=== PATIENT | male | born 1950 | race Caucasian/White ===

== ENCOUNTER 2016-09-18 09:46 | Emergency (ER) | payer OTHER ==
[2016-09-18] MEDS ORDERED: RX INFO: IV CONTRAST WAS GIVEN 1 EACH MISC MISCELLANE PRN (10:10)
--- NOTE | 2016-09-18 10:21 | ED ---
General Adult HPI - General Chief complaint: ENT Stated complaint: Facial swelling Time Seen by Provider: 09/18/16 10:03 Source: patient Mode of arrival: ambulatory Limitations: no limitations - History of Present Illness Initial comments: 65-year-old male with past medical history of hypertension, hyperlipidemia, and PPH presents with a 2 day history of right-sided facial swelling. Patient had a routine dental cleaning proximally 5 days ago. He had no symptoms after the cleaning and abruptly developed right-sided facial swelling yesterday. Patient denies fever but states he has felt hot and cold. He does not have a history of diabetes. Denies any tooth pain. Denies sore throat or difficulty swallowing. Patient denies trouble opening his mouth. Patient states he also feels a fullness in his right ear and swelling progresses down his neck. - Related Data Home Medications Medication Instructions Recorded Confirmed Fenofibrate 134 mg PO DAILY 09/18/16 09/18/16 Fluticasone Nasal [place] [Flonase 2 spr EA NOSTRIL DAILY PRN 09/18/16 09/18/16 Nasal [place]] Krill Oil 500 mg PO DAILY 09/18/16 09/18/16 Losartan/Hydrochlorothiazide 1 tab PO DAILY 09/18/16 09/18/16 [Hyzaar 50-12.5 Tablet] Multivitamins, Thera [Multivitamin 1 tab PO DAILY 09/18/16 09/18/16 (formulary)] Omeprazole [PriLOSEC] 40 mg PO DAILY 09/18/16 09/18/16 Tamsulosin HCl [Flomax] 0.4 mg PO DAILY 09/18/16 09/18/16 Previous Rx's Medication Instructions Recorded Amoxicillin/Potassium Clav 1 tab PO Q12HR #20 tab 09/18/16 [Augmentin 875-125 Tablet] Allergies Allergy/AdvReac Type Severity Reaction Status Date / Time No Known Allergies Allergy Verified 09/18/16 13:06 Review of Systems ROS Statement: Those systems with pertinent positive or pertinent negative responses have been documented in the HPI. ROS Other: All systems not noted in ROS Statement are negative. Constitutional: Reports: fever, chills (Subjective) ENT: Reports: other (Ear fullness) Respiratory: Denies: cough, dyspnea Cardiovascular: Denies: chest pain Endocrine: Denies: fatigue Gastrointestinal: Denies: abdominal pain, nausea, vomiting Past Medical History Past Medical History: Hyperlipidemia, Hypertension Additional Past Medical History / Comment(s): prostate History of Any Multi-Drug Resistant Organisms: None Reported Past Surgical History: Cholecystectomy, Orthopedic Surgery Past Psychological History: No Psychological Hx Reported Smoking Status: Never smoker Past Alcohol Use History: None Reported Past Drug Use History: None Reported General Exam Limitations: no limitations General appearance: alert, in no apparent distress, other (Nontoxic) Head exam: Present: atraumatic, normocephalic Eye exam: Present: normal appearance, PERRL. Absent: scleral icterus ENT exam: Present: normal oropharynx, mucous membranes moist, normal external ear exam, other (Swelling of the right face which begins in the preauricular area and extends down into the anterior cervical region. Warm. No tenderness to percussion on any teeth.) Neck exam: Present: tenderness, other (No trismus) Respiratory exam: Absent: normal lung sounds bilaterally Cardiovascular Exam: Absent: regular rate, normal rhythm GI/Abdominal exam: Absent: soft, tenderness Extremities exam: Present: normal inspection Neurological exam: Present: alert, oriented X3 Skin exam: Present: warm, dry Course Vital Signs 09/18/16 09:48 Temperature 98.3 F Pulse Rate 72 Respiratory 20 Rate Blood Pressure 139/91 O2 Sat by Pulse 96 Oximetry - Reevaluation(s) Reevaluation #1: 09/18/16 15:06 Patient is reevaluated at 1315 100. Pain is improved with Toradol injection. CT results were discussed with patient. Medical Decision Making - Medical Decision Making 65-year-old male presenting with right-sided facial swelling over the past 24 hours. Laboratory studies are obtained and significant only for mild elevation in white blood cell count of 12.7. CT of the face and neck is obtained with contrast to evaluate for suppurative parotitis. There is evidence only of parotid gland swelling. CT results do not show an infectious process, no fat stranding. Patient will be given antibiotics and is encouraged to use lemon drops for increased salivary gland drainage. Patient will follow up with his primary care physician in the next several days. Patient is instructed to return to the emergency department with fever, worsening swelling or pain. Diagnosis: Parotitis Disposition: Home with outpatient follow-up. - Lab Data Result diagrams: 09/18/16 10:20 09/18/16 10:20 Lab Results 09/18/16 09/18/16 Range/Units 10:20 10:20 WBC 12.7 H (3.8-10.6) k/uL RBC 5.62 (4.30-5.90) m/uL Hgb 18.4 H (13.0-17.5) gm/dL Hct 48.7 (39.0-53.0) % MCV 86.7 (80.0-100.0) fL MCH 32.7 (25.0-35.0) pg MCHC 37.7 H (31.0-37.0) g/dL RDW 13.6 (11.5-15.5) % Plt Count 200 (150-450) k/uL Neutrophils % 78 % Lymphocytes % 13 % Monocytes % 6 % Eosinophils % 2 % Basophils % 0 % Neutrophils # 9.9 H (1.3-7.7) k/uL Lymphocytes # 1.6 (1.0-4.8) k/uL Monocytes # 0.7 (0-1.0) k/uL Eosinophils # 0.2 (0-0.7) k/uL Basophils # 0.1 (0-0.2) k/uL Hyperchromasia Slight Sodium 140 (137-145) mmol/L Potassium 4.2 (3.5-5.1) mmol/L Chloride 105 (98-107) mmol/L Carbon Dioxide 22 (22-30) mmol/L Anion Gap 13 mmol/L BUN 19 (9-20) mg/dL Creatinine 0.90 (0.66-1.25) mg/dL Est GFR (MDRD) Af Amer >60 (>60 ml/min/1.73 sqM) Est GFR (MDRD) Non-Af >60 (>60 ml/min/1.73 sqM) Glucose 98 (74-99) mg/dL Calcium 9.5 (8.4-10.2) mg/dL Disposition Clinical Impression: Parotitis Disposition: HOME SELF-CARE Condition: Good Additional Instructions: Patient will return with fever or worsening pain, or difficulty swallowing. Patient is instructed to suck on lemon drops every few hours. Prescriptions: Amoxicillin/Potassium Clav [Augmentin 875-125 Tablet] 1 tab PO Q12HR #20 tab Referrals: Vince Davila MD [Primary Care Provider] - 1-2 days
[2016-09-18 10:45] LABS: Basophils # (A) 0.1 k/uL (0-0.2); Basophils % (A) 0 %; CH 32.4; CHCM 37.6; Eosinophils # (A) 0.2 k/uL (0-0.7); Eosinophils % (A) 2 %; HCT 48.7 % (39.0-53.0); HDW 2.86; HGB 18.4 gm/dL (13.0-17.5); Hyperchromasia Slight; Luc # (Auto) 0.19; Luc % (Auto) 2; Lymphocytes # (A) 1.6 k/uL (1.0-4.8); Lymphocytes % (A) 13 %; MCH 32.7 pg (25.0-35.0); MCHC 37.7 g/dL (31.0-37.0); MCV 86.7 fL (80.0-100.0); Mean Platelet Volume 7.7; Monocytes # (A) 0.7 k/uL (0-1.0); Monocytes % (A) 6 %; Neutrophils # (A) 9.9 k/uL (1.3-7.7); Neutrophils % (A) 78 %; RBC 5.62 m/uL (4.30-5.90); RDW 13.6 % (11.5-15.5); WBC 12.7 k/uL (3.8-10.6); WBC (Perox) 12.16
[2016-09-18 10:55] LABS: Anion Gap 13 mmol/L; Blood Urea Nitrogen 19 mg/dL (9-20); Calcium 9.5 mg/dL (8.4-10.2); Carbon Dioxide 22 mmol/L (22-30); Chloride 105 mmol/L (98-107); Glucose 98 mg/dL (74-99); Non-African American GFR(MDRD) >60 (>60 ml/min/1.73 sqM); Potassium 4.2 mmol/L (3.5-5.1); Sodium 140 mmol/L (137-145)
[2016-09-18] MEDS ORDERED: KETOROLAC 30 MG/ML 1 ML VIAL IVP STA (13:16)
--- NOTE | 2016-09-18 14:57 | CT ---
EXAMINATION TYPE: CT facial bones w con DATE OF EXAM: 09/18/2016 COMPARISON: NONE HISTORY: Facial swelling and pain CT DLP: 586 mGycm Automated exposure control for dose reduction was used. CONTRAST: CT scan of the facial bones is performed with IV Contrast, patient injected with 100 ml mL of Omnipaq ue 300. TECHNIQUE: CT scan of the sinuses is performed without contrast, axial images are obtained, coronal r eformatted images are also reviewed. FINDINGS: The right parotid gland is prominent. No underlying abnormality is identified. This corresp onds to a BB on the right cheek. No underlying abnormality is evident at the second BB on the right c heek. Orbits appear symmetrical. Globes are symmetrical. Maxillary sinuses ethmoid air cells frontal sinuse s and sphenoid sinuses are clear. Mastoid air cells are clear. Incidental note is made of some low de nsity within the left subcutaneous cheek the initial image. This extends inferiorly out of the field- of-view. Right septal deviation is present IMPRESSION: 1. Prominent right parotid gland. 2. 1.7 cm partially visualized soft tissue subcutaneous mass over the left cheek. 3. An abnormality at the right cheek marked by BB is not identified.
--- NOTE | 2016-09-18 15:00 | CT ---
EXAMINATION TYPE: CT soft tissue neck w con DATE OF EXAM: 09/18/2016 COMPARISON: NONE HISTORY: Facial swelling and pain CT DLP: 700 mGycm CONTRAST: Patient injected with 100 ml mL of Omnipaque 300. TECHNIQUE: Axial images at 3 mm thick sections. Reconstructed images in the coronal plane and sagitt al plane are reviewed. FINDINGS: Limited CT sections are obtained the lung apices. The lung apices appear clear. CT neck: The torus tubarius and fossa of Rosenmuller are normal. [employer] Worker spaces are normal. Para nasal sinuses and mastoid air cells are clear. There is a nonspecific subcutaneous left low density s tructure measuring 1.6 cm just anterior to the left lateral dedicated regional driver muscles. Lymph node could be c onsidered. This area corresponds to the soft tissue abnormality described on the CT facial bone study . The right parotid gland is prominent. The second more anterior cheek BB on the right does not corresp ond to an abnormality within the [id number]. Submandibular glands, are normal. Parapharyngeal spaces are normal. No suspicious adenopathy is elver dent. Vocal cord level appear symmetrical. Subglottic airway is unremarkable. The hypopharynx appears within normal limits. Thyroid as visualized is normal. Mild facet changes are in the lower cervical spine. IMPRESSIONS: 1. Soft tissue density subcutaneous left cheek may be related to a lymph node among other etiologies. This is not a typical appearance for a lymph node. 2. Corresponding abnormalities the right marked BB sites is not evident. Note is made of a large righ t parotid gland.
[2016-09-18 15:10] VITALS: RESP 18
[2016-09-18 15:18] VITALS: BP 136/79; PULSE 72; TEMP 98.9
== END 2016-09-18 15:18 | disposition home or self-care (01) ==
LOC: EC 09:46
DX: K11.20 Sialoadenitis, unspecified (principal); I10 Essential (primary) hypertension; E78.5 Hyperlipidemia, unspecified; Z79.899 Other long term (current) drug therapy
CPT/HCPCS: 36415; 80048; 85025; 70487; 70491; 99284; 96374; J1885; Q9967